=== PATIENT | female | born 2005 | race Caucasian/White ===

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

== ENCOUNTER → 2024-02-20 | Outpatient (REF) | payer OTHER ==
[~2024-02-20] MED LIST changes: +ONDA-284 PO; -ONDA8TAB8 PO
[2024-02-20 21:41] LABS: Trichomonas vaginalis (AMP) NOT DETECTED (NEGATIVE)
[2024-02-20 22:06] LABS: GC DNA AMPLIFICATION NEGATIVE (NEGATIVE)
== END ==
LOC: M SFHCWAGY 17:23
PROVIDERS: ATTEND Nurse Practitioner Family
DX: N73.9 Female pelvic inflammatory disease, unspecified (principal); N94.10 Unspecified dyspareunia

== ENCOUNTER 2024-05-01 12:49 | Outpatient (RCR) | payer OTHER | END 2024-05-05 | LOC: M PT 12:49 | PROVIDERS: ATTEND Nurse Practitioner Family | DX: N94.10 Unspecified dyspareunia (principal) ==

== ENCOUNTER 2024-05-29 11:48 | Outpatient (RCR) | payer OTHER | END 2024-06-05 | LOC: M PT 11:48 | PROVIDERS: ATTEND Nurse Practitioner Family | DX: N94.10 Unspecified dyspareunia (principal) ==

== ENCOUNTER → 2024-06-25 | Outpatient (REF) | payer OTHER | LOC: M SFHCWAGY 16:50 | PROVIDERS: ATTEND Nurse Practitioner Family | DX: N73.9 Female pelvic inflammatory disease, unspecified (principal) ==

== ENCOUNTER 2024-07-05 15:10 | Outpatient (RCR) | payer OTHER | END 2024-07-06 | LOC: M PT 15:10 | PROVIDERS: ATTEND Nurse Practitioner Family | DX: N94.10 Unspecified dyspareunia (principal) ==

== ENCOUNTER → 2024-08-03 | Outpatient (RCR) | payer OTHER | LOC: M PT 07-13 14:24 | PROVIDERS: ATTEND Nurse Practitioner Family | DX: N94.10 Unspecified dyspareunia (principal) ==

== ENCOUNTER 2024-08-31 13:49 | Day surgery (SDC) | payer OTHER ==
[~2024-08-31] VITALS: Ht 157.5 cm; Wt 49.9 kg
[~2024-08-31 13:49] MED LIST changes: +CYCL-707 PO
[2024-08-31 14:19] LABS: HEMATOCRIT 40.9 % (36.0-47.0); MEAN CORPUSCULAR HEMOGLOBIN 29.7 pg (27.0-33.0); MEAN CORPUSCULAR HGB CONC 34.2 g/dl (32.0-36.5); MEAN CORPUSCULAR VOLUME 86.7 fl (80.0-96.0); PLATELET COUNT, AUTOMATED 281 10^3/uL (150-450); RED BLOOD COUNT 4.72 10^6/uL (4.00-5.40); WHITE BLOOD COUNT 9.2 10^3/uL (4.0-10.0)
[2024-08-31] MEDS ORDERED: LR 1,000 ML IV SCH ×3 (14:45→19:30)
[2024-08-31] MEDS ORDERED: ACETAMINOPHEN 1000MG/100ML IV BAG As Ordered ONE (15:10)
[2024-08-31] MEDS ORDERED: propofoL 200 MG/20 ML VIAL As Ordered ONE (15:10)
[2024-08-31] MEDS ORDERED: MIDAZOLAM INJ 2MG/2ML VIAL As Ordered ONE (15:10)
[2024-08-31] MEDS ORDERED: fentaNYL 100 MCG/2 ML INJECTION As Ordered ONE (15:10)
[2024-08-31] MEDS ORDERED: SUGAMMADEX SODIUM 500 MG/5 ML VIAL (BRIDION) As Ordered ONE (15:11)
[2024-08-31] MEDS ORDERED: ONDANSETRON 4MG 2ML VIAL As Ordered ONE (15:11)
[2024-08-31] MEDS ORDERED: ROCURONIUM BROMIDE 50MG/5ML VIAL As Ordered ONE (15:11)
[2024-08-31] MEDS ORDERED: LIDOCAINE 2% 100MG/5ML SDV (FOR ANES.) As Ordered ONE (15:11)
[2024-08-31] MEDS ORDERED: KETOROLAC 30 MG/ML 1ML VIAL As Ordered ONE (15:11)
[2024-08-31] MEDS: SCOPOLAMINE 1MG TRANSDERMAL PATCH TOP ONE (15:15)
[2024-08-31] MEDS ORDERED: IBUP-1022 PO (15:49)
[2024-08-31] MEDS ORDERED: fentaNYL 100 MCG/2 ML INJECTION IV PRN (17:05)
[2024-08-31] MEDS: ONDANSETRON 4MG 2ML VIAL IV PRN (17:10)
[2024-08-31] MEDS: oxyCODONE 5MG TAB PO PRN (17:42)
[2024-08-31] MEDS: HYDROMORPHONE HCL 0.5 MG/ 0.5 ML SYRINGE IV PRN (17:42)
[2024-08-31 19:20] VITALS: BP 126/80; TEMP 98.1; O2SAT 99
[2024-08-31] MEDS ORDERED: PERCOCET 5MG/325MG TAB PO PRN (19:35)
== END 2024-08-31 19:29 | disposition home or self-care (01) ==
LOC: M SDC 13:49
PROVIDERS: ATTEND Specialist
DX: R10.2 Pelvic and perineal pain (principal); K58.9 Irritable bowel syndrome, unspecified; F41.9 Anxiety disorder, unspecified; F32.A Depression, unspecified; Z88.1 Allergy status to other antibiotic agents; Z79.3 Long term (current) use of hormonal contraceptives; Z79.899 Other long term (current) drug therapy
CPT/HCPCS: 36415; 49320; 81025; 85027; 86850; 86900; 86901; J0131; J0665; J1100; J1171; J1885; J2250; J2405; J3010

== ENCOUNTER → 2024-10-02 | Outpatient (CLI) | payer OTHER ==
[~2024-10-02] MED LIST changes: +IBUP-1022 PO; +ISOVUE-370 76% 100ML VIAL ONE
== END ==
LOC: M PLAIMG 14:26
PROVIDERS: ATTEND Nurse Practitioner Family
DX: R10.2 Pelvic and perineal pain (principal)

== ENCOUNTER → 2024-10-16 | Outpatient (CLI) | payer OTHER ==
[~2024-10-16] MED LIST changes: -ISOVUE-370 76% 100ML VIAL ONE
== END ==
LOC: M RAD 15:03
PROVIDERS: ATTEND Physician Assistant Medical
DX: R22.1 Localized swelling, mass and lump, neck (principal)

== ENCOUNTER 2025-01-11 11:12 | Emergency (ER) | payer OTHER ==
[~2025-01-11] VITALS: Ht 157.5 cm; Wt 44.5 kg
[2025-01-11] MEDS ORDERED: HYDR-3363 PO (11:36)
[2025-01-11] MEDS ORDERED: CELE0.09 PO (11:36)
[2025-01-11] MEDS ORDERED: METH4PACK PO (11:36)
[2025-01-11] MEDS ORDERED: HYDR-3713 PO (11:36)
[2025-01-11] MEDS ORDERED: LEXA1TAB PO (11:36)
[2025-01-11 12:13] LABS: BASO # 0.0 10^3/uL (0.0-0.2); BASO % 0.3 % (0.0-1.0); EOS # 0.0 10^3/uL (0.0-0.5); EOS % 0.0 % (0.0-3.0); LYMPH # 0.9 10^3/uL (1.5-5.0); LYMPH % 7.9 % (24.0-44.0); MONO # 0.8 10^3/uL (0.0-0.8); MONO % 7.5 % (2.0-8.0); NEUTROPHILS # 9.1 10^3/uL (1.5-8.5); NEUTROPHILS % 84.0 % (36.0-66.0); PLATELET COUNT, AUTOMATED 195 10^3/uL (150-450)
[2025-01-11 13:02] LABS: ALT/SGPT 57 U/L (7.0-40); AST/SGOT 46 U/L (<34)
[2025-01-11 13:03] LABS: HCG, SERUM QUALITATIVE NEGATIVE (NEGATIVE)
[2025-01-11] MEDS: NS (Normal Saline) 0.9% 1,000 ML IV ONE (13:20)
[2025-01-11] MEDS ORDERED: ISOVUE-370 76% 100 ML VIAL As Ordered ONE (13:38)
[2025-01-11] MEDS: HALOPERIDOL LACTATE 5 MG/ML VIAL IV ONE (15:08)
[2025-01-11 15:26] LABS: KETONE, URINE AUTO RFX TRACE mg/dL (NEGATIVE); LEUKOCYTE ESTERASE UR AUTO RFX NEGATIVE (NEGATIVE); MUCUS, URINE RFX SMALL (NEGATIVE); NITRITE, URINE AUTO RFX NEGATIVE (NEGATIVE); RBC, URINE AUTO RFX 2 /HPF (0-3); SQUAM EPITHELIAL CELL UR AURFX 1 /HPF (0-6); WBC, URINE AUTO RFX 1 /HPF (0-3)
[2025-01-11 15:27] VITALS: TEMP 97.5
[2025-01-11] MEDS: PROMETHAZINE 25MG/ML 1ML VIAL IV ONE (16:20)
[2025-01-11 18:00] VITALS: BP 132/93; O2SAT 98
[2025-01-11] MEDS ORDERED: PROM25TA12 PO (18:38)
== END 2025-01-11 18:50 | disposition home or self-care (01) ==
LOC: M ED 11:12 → EDBD 11:12 → M ED 18:50
DX: R10.9 Unspecified abdominal pain (principal); R11.10 Vomiting, unspecified; K58.9 Irritable bowel syndrome, unspecified; Z88.1 Allergy status to other antibiotic agents; Z79.1 Long term (current) use of non-steroidal anti-inflammatories (NSAID); Z79.899 Other long term (current) drug therapy
CPT/HCPCS: 74177; 80047; 80076; 81001; 83690; 84703; 85025; 93005; 96361; 96374; 96375; 99284; J1630; J2550; J2765; Q9967

== ENCOUNTER → 2025-05-13 | Outpatient (REF) ==
[~2025-05-13] MED LIST changes: +CELE0.09 PO; +HYDR-3363 PO; +HYDR-3713 PO; -IBUP-1022 PO; +IBUP600T42 PO; +LEXA1TAB PO; +METH4PACK PO; +PROM25TA12 PO
[2025-05-13 17:29] LABS: COLLAGEN EPINEPHRINE 142 SECONDS (74-162)
== END ==
LOC: M LAB REF 17:24
DX: Z01.89 Encounter for other specified special examinations (principal)